=== PATIENT | male | born 1970 | race Two or more races ===

== ENCOUNTER 2024-04-07 15:06 | Emergency (ER) | payer MEDICAID, OTHER ==
[~2024-04-07] VITALS: Ht 195.6 cm; Wt 178.0 kg
[2024-04-07 19:16] VITALS: BP 141/115; PULSE 112; RESP 18; TEMP 99; O2SAT 93
== END 2024-04-07 19:17 | disposition left against medical advice (07) ==
LOC: ER 15:06
DX: M25.572 Pain in left ankle and joints of left foot (principal); Z53.21 Procedure and treatment not carried out due to patient leaving prior to being seen by health care provider; X58.XXXA Exposure to other specified factors, initial encounter; Y93.01 Activity, walking, marching and hiking; Y92.89 Other specified places as the place of occurrence of the external cause; Y99.8 Other external cause status

== ENCOUNTER → 2024-06-09 | Outpatient (CLI) | payer MEDICAID ==
[~2024-06-09] VITALS: Ht 195.6 cm; Wt 178.7 kg
[2024-06-09 11:08] VITALS: BP 99/67
[2024-06-09] MEDS: DOBUTamine 1000MCG/ML 100 ML IV ONE (11:08)
[2024-06-09] MEDS: ATROPINE SULF 0.5 MG/5ML SYR ONE (11:20)
[2024-06-09] MEDS: METOPROLOL TARTRATE 1MG/1ML-5ML VIAL IV ONE (11:21)
[2024-06-09] MEDS: DOBUTamine 1000MCG/ML 250 ML IV ONE (11:24)
== END | disposition home or self-care (01) ==
LOC: XYW 10:01
PROVIDERS: ATTEND Student in an Organized Health Care Education/Training Program
DX: I48.0 Paroxysmal atrial fibrillation (principal); R06.02 Shortness of breath
CPT/HCPCS: 93017; 93350; J1250; J0461